=== PATIENT | female | born 1955 | race Caucasian/White ===

== ENCOUNTER → 2017-07-05 | Outpatient (CLI) | payer BC ==
[2017-07-05 10:04] LABS: MEAN CORPUSCULAR HEMOGLOBIN 34.3 pg (27.0-33.0); MEAN CORPUSCULAR HGB CONC 34.4 g/dl (32.0-36.5); MEAN CORPUSCULAR VOLUME 99.7 fl (80.0-96.0); RED CELL DISTRIBUTION WIDTH 12.6 % (11.5-14.5); WHITE BLOOD COUNT 5.8 K/mm3 (4.0-10.0)
[2017-07-05 10:41] LABS: ALBUMIN 3.5 GM/DL (3.2-5.2); ALBUMIN/GLOBULIN RATIO 0.95 (1.00-1.93); ALKALINE PHOSPHATASE 134 U/L (45-117); ALT/SGPT 79 U/L (12-78); ANION GAP 9 MEQ/L (8-16); AST/SGOT 83 U/L (15-37); BILIRUBIN,TOTAL 1.4 MG/DL (0.2-1.0); BLOOD UREA NITROGEN 6 MG/DL (7-18); CALCIUM LEVEL 9.3 MG/DL (8.8-10.2); CARBON DIOXIDE LEVEL 27 MEQ/L (21-32); CHLORIDE LEVEL 105 MEQ/L (98-107); CHOLESTEROL LEVEL 193 MG/DL (<200); CREATININE FOR GFR 0.74 MG/DL (0.55-1.02); GLOMERULAR FILTRATION RATE > 60.0 (>45); GLUCOSE, FASTING 97 MG/DL (80-110); SODIUM LEVEL 141 MEQ/L (136-145); TOTAL PROTEIN 7.2 GM/DL (6.4-8.2); TRIGLYCERIDES LEVEL 81 MG/DL (<150)
--- NOTE | 2017-07-05 20:45 | ECGEPIP ---
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
--- NOTE | 2017-07-05 21:07 | REP ---
Clinical: COPD. Technique: PA and lateral. Comparison: 05/21/2016. Findings: Mediastinum and cardiac silhouette are normal. Oligemia to the upper lobes with chronic-appearing scattered interstitial changes compatible with history of COPD. No focal consolidation, effusion, or pneumothorax. Skeletal structures demonstrate age-related osteopenia and degenerative change. Impression: Chronic COPD. No acute cardiopulmonary process appreciated. Signed by Bahman Nieto MD 07/05/2017 08:58 P
== END ==
LOC: M LAB 09:04
PROVIDERS: ATTEND Family Medicine
DX: J44.9 Chronic obstructive pulmonary disease, unspecified (principal); E03.9 Hypothyroidism, unspecified; R00.0 Tachycardia, unspecified; I45.9 Conduction disorder, unspecified; R94.31 Abnormal electrocardiogram [ECG] [EKG]

== ENCOUNTER → 2017-07-15 | Outpatient (CLI) | payer BC ==
--- NOTE | 2017-07-15 12:19 | REPMRS ---
Patient History The patient states she had a clinical breast exam in June 2017. Patient has history of other cancer at age 49. No known family history of cancer. Digital Mammo Screening Bilat: July 15, 2017 - Exam #: [id number] Bilateral CC and MLO view(s) were taken. Technologist: Mela Sewell, Technologist Prior study comparison: October 07, 2010, digital bilateral screening mammo performed at [facility]. August 16, 2007, bilateral screening mammogram performed at [facility]. FINDINGS: There are scattered fibroglandular densities. There has been no change in the appearance of the mammogram from the prior studies. There is a mild amount of scattered fibroglandular density which is fairly symmetric. There is no interval development of dominant mass, architectural distortion, or clustered microcalcification suggestive of malignancy. ASSESSMENT: BI-RADS/ACR category 1 mammogram. Negative. Recommendation Routine screening mammogram in 1 year (for women over age 40). This mammogram was interpreted with the aid of an FDA-approved computer-aided dectection system. Electronically Signed By: Rosendo Neves MD 07/15/17 [id number]
== END ==
LOC: M RAD 10:38
PROVIDERS: ATTEND Family Medicine
DX: Z12.31 Encounter for screening mammogram for malignant neoplasm of breast (principal)

== ENCOUNTER → 2018-05-02 | Outpatient (CLI) | payer BC ==
[2018-05-02 10:14] LABS: HEMATOCRIT 45.9 % (36.0-47.0); HEMOGLOBIN 16.3 g/dl (12.0-15.5); MEAN CORPUSCULAR HEMOGLOBIN 36.1 pg (27.0-33.0); MEAN CORPUSCULAR HGB CONC 35.5 g/dl (32.0-36.5); MEAN CORPUSCULAR VOLUME 101.5 fl (80.0-96.0); PLATELET COUNT, AUTOMATED 182 10^3/uL (150-450); RED BLOOD COUNT 4.52 10^6/uL (4.00-5.40); RED CELL DISTRIBUTION WIDTH 13.4 % (11.5-14.5); WHITE BLOOD COUNT 5.6 10^3/uL (4.0-10.0)
[2018-05-02 10:26] LABS: ESTIMATED AVERAGE GLUCOSE 82 MG/DL (60-110); HEMOGLOBIN A1c 4.5 %
[2018-05-02 10:37] LABS: TOTAL 25(OH) VITAMIN D 93.6 NG/ML (30.0-100.0)
[2018-05-02 10:58] LABS: ALBUMIN 3.7 GM/DL (3.2-5.2); ALKALINE PHOSPHATASE 84 U/L (45-117); ALT/SGPT 48 U/L (12-78); ANION GAP 11 MEQ/L (8-16); AST/SGOT 81 U/L (7-37); BLOOD UREA NITROGEN 7 MG/DL (7-18); CALCIUM LEVEL 9.4 MG/DL (8.8-10.2); CARBON DIOXIDE LEVEL 26 MEQ/L (21-32); CHLORIDE LEVEL 97 MEQ/L (98-107); CHOLESTEROL LEVEL 243 MG/DL (<200); CHOLESTEROL RISK RATIO 1.913 (<5); CREATININE FOR GFR 1.14 MG/DL (0.55-1.30); GLOMERULAR FILTRATION RATE 51.2 (>45); GLUCOSE, FASTING 86 MG/DL (70-100); HDL CHOLESTEROL 127 MG/DL (>40); IRON (FE) 178 UG/DL (50-170); LDL CHOLESTEROL 100.8 MG/DL (<100); NON-HDL-C 116 MG/DL; PERCENT SATURATION 60.1 % (13.2-45.0); POTASSIUM SERUM 4.2 MEQ/L (3.5-5.1); SODIUM LEVEL 134 MEQ/L (136-145); TOTAL IRON BINDING CAPACITY 296 UG/DL (250-450); TOTAL PROTEIN 7.4 GM/DL (6.4-8.2); TRIGLYCERIDES LEVEL 76 MG/DL (<150)
== END ==
LOC: M LAB 09:32
DX: R53.83 Other fatigue (principal)
CPT/HCPCS: 83550

== ENCOUNTER → 2019-06-04 | Outpatient (CLI) | payer BC ==
--- NOTE | 2019-06-04 09:45 | REP ---
Clinical: COPD . Comparison: 07/05/2017 . Technique: PA and lateral. Findings: The mediastinum and cardiac silhouette are normal. The lung sutton demonstrate mild oligemia involving the upper lung zones consistent with the given history of COPD. No focal consolidation, effusion, or pneumothorax. The skeletal structures are intact and normal. Impression: 1. COPD. 2. No acute cardiopulmonary process. Electronically Signed by Bahman Nieto MD 06/04/2019 09:36 A
[2019-06-04 09:53] LABS: HEMATOCRIT 45.7 % (36.0-47.0); MEAN CORPUSCULAR HEMOGLOBIN 35.7 pg (27.0-33.0); PLATELET COUNT, AUTOMATED 152 10^3/uL (150-450); RED BLOOD COUNT 4.48 10^6/uL (4.00-5.40); WHITE BLOOD COUNT 4.5 10^3/uL (4.0-10.0)
[2019-06-04 10:23] LABS: ALBUMIN 3.5 GM/DL (3.2-5.2); ALT/SGPT 56 U/L (12-78); BILIRUBIN,TOTAL 1.1 MG/DL (0.2-1.0); BLOOD UREA NITROGEN 5 MG/DL (7-18); CALCIUM LEVEL 9.4 MG/DL (8.8-10.2); CARBON DIOXIDE LEVEL 26 MEQ/L (21-32); CHLORIDE LEVEL 99 MEQ/L (98-107); CHOLESTEROL LEVEL 180 MG/DL (<200); CHOLESTEROL RISK RATIO 1.651 (<5); CREATININE FOR GFR 0.84 MG/DL (0.55-1.30); GLOMERULAR FILTRATION RATE > 60.0 (>45); GLUCOSE, FASTING 91 MG/DL (70-100); HDL CHOLESTEROL 109 MG/DL (>40); LDL CHOLESTEROL 54 MG/DL (<100); NON-HDL-C 71 MG/DL; POTASSIUM SERUM 3.9 MEQ/L (3.5-5.1); SODIUM LEVEL 134 MEQ/L (136-145); THYROXINE (T4) 10.4 UG/DL (4.5-12.0); TOTAL 25(OH) VITAMIN D 104.6 NG/ML (30.0-100.0); TOTAL PROTEIN 7.2 GM/DL (6.4-8.2); TRIGLYCERIDES LEVEL 84 MG/DL (<150)
[2019-06-04 10:26] LABS: TOTAL T3 108.8 NG/DL (60.0-181.0)
--- NOTE | 2019-06-05 08:50 | ECGEPIP ---
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
== END ==
LOC: M LAB 08:47
PROVIDERS: ATTEND Family Medicine
DX: E03.9 Hypothyroidism, unspecified (principal)

== ENCOUNTER → 2019-06-28 | Outpatient (CLI) | payer BC ==
[2019-06-28 09:15] LABS: HEMATOCRIT 48.6 % (36.0-47.0); HEMOGLOBIN 16.9 g/dl (12.0-15.5); MEAN CORPUSCULAR HEMOGLOBIN 36.3 pg (27.0-33.0); MEAN CORPUSCULAR HGB CONC 34.8 g/dl (32.0-36.5); MEAN CORPUSCULAR VOLUME 104.3 fl (80.0-96.0); PLATELET COUNT, AUTOMATED 131 10^3/uL (150-450); RED BLOOD COUNT 4.66 10^6/uL (4.00-5.40)
[2019-06-28 09:24] LABS: INR 0.94; PROTHROMBIN TIME 12.3 SECONDS (11.8-14.0)
[2019-06-28 09:50] LABS: ALBUMIN 3.6 GM/DL (3.2-5.2); ALT/SGPT 51 U/L (12-78); BILIRUBIN,TOTAL 1.3 MG/DL (0.2-1.0); BLOOD UREA NITROGEN 5 MG/DL (7-18); CALCIUM LEVEL 9.4 MG/DL (8.8-10.2); CARBON DIOXIDE LEVEL 22 MEQ/L (21-32); CHLORIDE LEVEL 103 MEQ/L (98-107); CHOLESTEROL LEVEL 198 MG/DL (<200); CHOLESTEROL RISK RATIO 1.767 (<5); CREATININE FOR GFR 0.74 MG/DL (0.55-1.30); GLOMERULAR FILTRATION RATE > 60.0 (>45); GLUCOSE, FASTING 88 MG/DL (70-100); HDL CHOLESTEROL 112 MG/DL (>40); LDL CHOLESTEROL 68 MG/DL (<100); NON-HDL-C 86 MG/DL; SODIUM LEVEL 136 MEQ/L (136-145); THYROID STIMULATING HORMONE 0.009 uIU/ML (0.358-3.740); TOTAL PROTEIN 7.1 GM/DL (6.4-8.2); TRIGLYCERIDES LEVEL 90 MG/DL (<150)
== END ==
LOC: M LAB 08:18
PROVIDERS: ATTEND Family Medicine
DX: E03.9 Hypothyroidism, unspecified (principal); J44.9 Chronic obstructive pulmonary disease, unspecified

== ENCOUNTER → 2019-08-14 | Outpatient (CLI) | payer BC ==
[2019-08-14 12:00] LABS: HEMATOCRIT 46.2 % (36.0-47.0); HEMOGLOBIN 15.7 g/dl (12.0-15.5); MEAN CORPUSCULAR HEMOGLOBIN 35.6 pg (27.0-33.0); MEAN CORPUSCULAR VOLUME 104.8 fl (80.0-96.0); PLATELET COUNT, AUTOMATED 165 10^3/uL (150-450); RED BLOOD COUNT 4.41 10^6/uL (4.00-5.40); WHITE BLOOD COUNT 5.5 10^3/uL (4.0-10.0)
[2019-08-14 12:11] LABS: INR 1.03; PROTHROMBIN TIME 13.2 SECONDS (11.8-14.0)
[2019-08-14 12:39] LABS: BLOOD UREA NITROGEN 6 MG/DL (7-18); CALCIUM LEVEL 9.4 MG/DL (8.8-10.2); CARBON DIOXIDE LEVEL 26 MEQ/L (21-32); CHLORIDE LEVEL 101 MEQ/L (98-107); CREATININE FOR GFR 0.99 MG/DL (0.55-1.30); GLOMERULAR FILTRATION RATE > 60.0 (>45); GLUCOSE, FASTING 82 MG/DL (70-100); POTASSIUM SERUM 4.3 MEQ/L (3.5-5.1); SODIUM LEVEL 136 MEQ/L (136-145)
[2019-08-14 12:40] LABS: ALBUMIN 3.6 GM/DL (3.2-5.2); ALT/SGPT 27 U/L (12-78); CHOLESTEROL LEVEL 229 MG/DL (<200); CHOLESTEROL RISK RATIO 1.683 (<5); HDL CHOLESTEROL 136 MG/DL (>40); LDL CHOLESTEROL 75 MG/DL (<100); NON-HDL-C 93 MG/DL; TRIGLYCERIDES LEVEL 88 MG/DL (<150)
== END ==
LOC: M LAB 10:51
PROVIDERS: ATTEND Family Medicine
DX: Z01.812 Encounter for preprocedural laboratory examination (principal); E03.9 Hypothyroidism, unspecified

== ENCOUNTER → 2025-08-05 | Outpatient (CLI) | payer MEDICARE | LOC: M WHC 09:19 | DX: M81.0 Age-related osteoporosis without current pathological fracture (principal) ==